=== PATIENT | male | born 1990 | race Caucasian/White ===

== ENCOUNTER → 2021-02-19 11:32 | Outpatient (BNVA) | payer BC, SELFPAY | PROVIDERS: Family Provider Nurse Practitioner Family; PCP Nurse Practitioner Family; Visit Provider Emergency Medicine | DX: Z20.822 Contact with and (suspected) exposure to COVID-19 (principal); R11.0 Nausea; J40 Bronchitis, not specified as acute or chronic | CPT/HCPCS: 87635 ==